=== PATIENT | male | born 1960 | race Caucasian/White ===

== ENCOUNTER 2020-10-15 12:29 | Emergency (ER) | payer OTHER ==
[2020-10-15] MEDS ORDERED: Acetaminophen/Codeine 30-300mg Tablet ONE (13:13)
== END 2020-10-15 13:46 | disposition home or self-care (01) ==
LOC: BURERS 12:29
DX: S32.019A Unspecified fracture of first lumbar vertebra, initial encounter for closed fracture (principal); I10 Essential (primary) hypertension; V49.9XXA Car occupant (driver) (passenger) injured in unspecified traffic accident, initial encounter
CPT/HCPCS: 71250; 72100; 72131